=== PATIENT | male | born 1995 | race Caucasian/White ===

== ENCOUNTER 2021-04-20 00:49 | Emergency (ER) | payer SELFPAY ==
--- NOTE | 2021-04-20 02:14 | NUR ---
PATIENT LEFT ER WITHOUT BEING SEEN.
== END 2021-04-20 02:16 | disposition left against medical advice (07) ==
LOC: ER 00:54
DX: Z53.21 Procedure and treatment not carried out due to patient leaving prior to being seen by health care provider (principal)